=== PATIENT | female | born 1965 | race Caucasian/White ===

== ENCOUNTER 2018-02-22 07:13 | Day surgery (SDC) | payer OTHER ==
[~2018-02-22 07:13] MED LIST: Buffered Lidocaine 0.9% SYRIN* 5 ML/SYR SYRINGE INTRADERM ONE; Famotidine TAB* 20 MG PO ONE
[2018-02-22] MEDS ORDERED: Famotidine TAB* 20 MG ONE (07:18)
[2018-02-22] MEDS ORDERED: ceFAZolin 2 GM PREMIX (*) 2 GM/50 ML BAG IVPB ONE (07:18)
[2018-02-22] MEDS ORDERED: fentaNYL* 50 MCG/ML 2 ML VIAL (100 MCG VIAL) ONE ×5 (07:53→11:02)
[2018-02-22] MEDS ORDERED: Ketorolac INJ* 30 MG/ML 1 ML VIAL ONE (07:53)
[2018-02-22] MEDS ORDERED: Dexamethasone IV* 4 MG/ML 1 ML (4 MG) ONE (07:53)
[2018-02-22] MEDS ORDERED: Propofol* 10 MG/ML 20 ML BTL IV PUSH ONE (07:53)
[2018-02-22] MEDS ORDERED: Lidocaine 2% PF * 5 ML VIAL ONE (07:53)
[2018-02-22] MEDS ORDERED: Midazolam* 1 MG/ML 5 ML VIAL (5 MG) ONE (07:53)
[2018-02-22] MEDS ORDERED: methylPREDNISolone ACETATE 80* 80 MG/ML 1 ML VIAL ONE ×2 (08:39→09:51)
[2018-02-22] MEDS ORDERED: Bupivacaine 0.5% PF 10 ML VIAL INJ ONE (08:40)
[2018-02-22] MEDS ORDERED: Naloxone* 0.4 MG/ML 1 ML VIAL IV PRN (09:36)
[2018-02-22] MEDS ORDERED: Ondansetron ODT TAB* 4 MG PO PRN (09:36)
[2018-02-22] MEDS: fentaNYL* 50 MCG/ML 2 ML VIAL (100 MCG VIAL) IV PRN ×5 (10:22→11:16)
[2018-02-22] MEDS ORDERED: oxyCODONE/Acetamin 5/325 MG* TAB ONE ×2 (10:38→11:02)
[2018-02-22 11:55] VITALS: BP 162/95
--- NOTE | 2018-02-24 22:44 | OP ---
DATE OF OPERATION: 02/22/18 - [facility] DATE OF : 65 SURGEON: Esau Wade MD EDUCATIONAL ADMINISTRATION TEACHER: ERIC Miranda. A physician scheduling assistant was required for the length of the procedure for positioning, assistance with instrumentation, manipulation of knee, and closure. ANESTHESIOLOGIST: Kevin Strong MD ANESTHESIA: General anesthesia, local anesthesia with Marcaine, 0.5% without epinephrine. PRE-OP DIAGNOSIS: Left knee medial meniscus tear. POST-OP DIAGNOSES: 1. Left knee medial meniscus tear. 2. Left knee significant synovitis. 3. Left knee articular cartilage grade 2 to 3 wear, medial femoral condyle. OPERATIVE PROCEDURE: 1. Left knee arthroscopic partial medial meniscectomy. 2. Left knee arthroscopic synovectomy, anterior. 3. Left knee joint cortisone injection, 120 mg Depo-Medrol. ANTIBIOTICS: 2 g Ancef IV. IV FLUIDS: 1200 cc crystalloid. SPECIMEN: None. IMPLANTS: None. COMPLICATIONS: None. ESTIMATED BLOOD LOSS: Minimal. CORTISONE USED: 120 mg Depo-Medrol in 3 cc. GVKG-OF-FEOE TIME: 36 minutes. TOURNIQUET TIME: 34 minutes. 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 The patient's pain knee and swelling started acutely. The patient responded insufficiently to nonoperative management and opted for surgery. The patient's MRI demonstrated a medial meniscus tear. Discussed risks and potential complications of surgery with the patient including bleeding, infection, nerve or blood vessel injury, knee pain, stiffness, osteoarthritis. DESCRIPTION OF PROCEDURE: In preoperative holding, the patient signed a written consent. Operative extremity marked in preoperative holding. The patient was taken back to the operating room and placed supine on the operating room table. General anesthesia was induced. Tourniquet was placed about the left proximal thigh. Left distal thigh was placed in a circumferential thigh casiano. Table was elevated further, table was dropped. The left lower extremity was prepped with ChloraPrep and then draped. Time-out was performed. Esmarch was applied and tourniquet was elevated to 300 mmHg. Left knee anterolateral knee arthroscopy portal was established. I could view in the patellofemoral compartment. However, there was a wall of synovitis anteriorly, so could not easily drop down into the medial or lateral compartment. Therefore, at this point, I established my anteromedial portal, and used it to enter an arthroscopic shaver to remove synovitic tissue about the anterior knee. We started in the extended position and moved to a flexed position. This allowed removal of the synovitis and full visualization of all 3 compartments. I described this as a veil of synovial tissue along the entire anterior aspect of the knee, including prolapsing on both condyles, which I see occasionally. It should be noted that the patient had some bleeding from the skin incision sites likely veins, both from the anterolateral and anteromedial portal sites. I dropped the tourniquet, reapplied the Esmarch more tightly and reinflated the tourniquet. This provided some benefit. Inspected the medial compartment. There was some cobblestoning of the central aspect of the medial femoral condyle, grade 2 and 3 changes. I was worried that the most central side of that cartilage might be at risk, but I smoothed down any frayed cartilage and there was no unstable articular cartilage present. Examining the medial meniscus, there was clearly a tear, complex in shape, with a short parrot-beak tear to it. Using an anteromedial portal, I debrided that medial meniscus back to a stable rim using biters and an arthroscopic shaver. I worked through the anteromedial and then through an anterolateral portal. I confirmed no additional flaps of meniscus were present and there was a stable rim of tissue. Near the body and the posterior horn junction of the medial meniscus, there was very little meniscal rim left once the tear had been removed. Cruciate ligaments were intact. No unstable articular cartilage or meniscus tear in the lateral compartment. I removed fluid and instruments from knee. Closed skin with [id number] incision stitches using nylon 4-0 suture. I then injected 3 cc of 40 mg/mL solution of Depo-Medrol for a total of 120 mg. I then injected some local anesthetic, some 0.5% Marcaine without epinephrine into the subcutaneous tissue surrounding the skin incisions. Xeroform, then 4x4 's, then ABD, then sterile Webril, then unsterile Webril, then Zelalem bandage from the foot to proximal thigh. Tourniquet was dropped. Icing unit was placed on the knee. DISPOSITION: The patient was discharged home when medically stable. She will receive Percocet as needed for pain control. Keflex for infection prophylaxis, aspirin for DVT prophylaxis. The patient will start physical therapy immediately and will see me 10 to 14 days postoperative. [id number]/[facility] #: [id number] TORRES
== END 2018-02-22 12:39 | disposition home or self-care (01) ==
LOC: OR 07:13
PROVIDERS: ATTEND Orthopaedic Surgery
DX: S83.242D Other tear of medial meniscus, current injury, left knee, subsequent encounter (principal)
CPT/HCPCS: A9270-GY; J0690; J1040; J1100; J1885; J2250; J2704; J3010

== ENCOUNTER 2018-06-24 18:22 | Emergency (ER) | payer OTHER ==
--- OUTSIDE RECORDS SUMMARY | 2018-06-24 18:29 | XMS REPORT ---
:1965 External Reference #:[id number] Author Organization [facility] Address [address] [place] [address] [place] [address] Phone [phone] Care Team Providers Name Role Phone Jonathon Santiago MD Primary Care Physician Unavailable Payers Type Date Identification Numbers Payment Provider Subscriber Commercial Expires: Policy Number: BS Of [facility] Kingsley Groves 2007 [id number] Group Number: [id number] [address] [address] PayID: [id number] [place] bartlett [id number] Medigap Part B Expires: 2008 Policy Number: Medicaid Kingsley Groves [id number] PayID: [id number] [address] [place] [address] Commercial Effective: Policy Number: [employer] Kingsley Christiansoner 2008 [id number] Medicaid PayID: [id number] [address] [address] [place] [address] Problems Date Description Provider Status Onset: 08/28/2007 Displacement of lumbar Jonathon Santiago, 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 Active Onset: 02/13/2017 Edema Jama Lofton NP Active Onset: 02/13/2017 Dyspnea on exertion Jama Lofton NP Active Onset: 02/20/2018 Mild intermittent asthma Gideon ARTURO Schwarz Active Family History Date Family Member(s) Problem(s) Comments Father Hypertension Father Diverticulitis recurrent Father Bladder Cancer Mother Asthma Mother Migraine First Son Asthma First Daughter Asthma First Daughter Migraine Siblings 1 First Sister Diabetes, Non Insulin Dependent Paternal Grandfather due to CAD () Maternal Grandfather due to CAD () Maternal Grandmother due to Cancer, Colon () Social History Type Date Description Comments Marital Status Occupation Nurse Cigarette Use Never Smoked Cigarettes ETOH Use 06/25/2017 Rarely consumes alcohol Recreational Drug Use Denies Drug Use Smoking Patient has never smoked General Hx Text 2 kids Allergies, Adverse Reactions, Alerts Date Description Reaction Status Severity Comments 12/25/2007 NKDA active Medications Medication Date Status Form Strength Qnty SIG Indications Ordering Provider Furosemide 05/28/ Active Tablets 20mg 30tabs 1 by mouth R60.0 Gideon 2017 daily as ARTURO Schwarz needed for edema. Compression 05/03/ Active Misc 2units thigh high Esau Stockings 2018 compression F stockings MD Mauro Meloxicam 05/03/ Active Tablets 15mg 90tabs take 1 tab by Esau 2017 mouth with F food once a sona Wade MD Ventolin HFA 02/20/ Active Aerosol 108(90Base 1month 1-2 puffs J45.20 Gideon 2017 ) mcg/Act every 4-6 ARTURO Schwarz hours as needed for SOB Pristiq 10/20/ Active Tablets 100mg 30tabs 1 by mouth F32.9 Gideon 2010 ER 24HR every day ARTURO Schwarz Abilify 10/20/ Active Tablets 5mg 30tabs 1 by mouth F32.9 Gideon 2010 every night ARTURO Schwarz Inderal LA 08/14/ Active Caps ER 80mg 30caps take 1 I45.81 Gideon 2006 24HR capsule by Karishma, [facility] mouth every evening I10 Methadone HCL Active Tablets 10mg 90tabs 1/2 to 1 T40.3x5A Unknown tab q4hprn Cyclobenzaprine Active Tablets 5mg take one Unknown HCL tablet by mouth every 8 hours prn. may take a second tablet if first not effetive. Methylprednisolon 04/16/2018 Hx TBPK 4mg 21units medrol M17.12 Esau e - dosepak F 05/28/2018 take as kimberly Wade MD Cephalexin 02/22/2018 Hx Tablets 500mg 9tabs take 1 by Esau - mouth every F 03/06/2018 8 hours x 3 Mauro, days Aspirin 02/22/2018 Hx Tablets 325mg 28tabs take 1 Esau - twice a day F 05/28/2018 x 14 days MD Mauro Oxycodone-Acetami 02/22/2018 Hx Tablets 5-325 30tabs 1-2 tabs by Esau nophen - mg mouth every F 04/15/2018 4-6 hours Mauro, as needed for pain Hydrochlorothiazi 02/13/2017 Hx Tablets 25mg 30tabs take 1 R60.0 Gideon de - tablet by ARTURO Schwarz 05/28/2018 mouth every day Naproxen 10/12/2016 Hx Tablets 500mg 90tabs 1 po bid M25.561 Esau - prn pain F 05/28/2018 MD Mauro Celecoxib 10/12/2016 Hx Capsules 100mg 60caps 100mg by M25.561 Esau - mouth twice F 02/13/2017 a day as Mauro, needed Tamiflu 04/27/2016 Hx Capsules 75mg 10caps twice a day J09.x9 Alirio - Pachikara 02/13/2017 , Hosea Citrucel 06/27/2013 Hx Powder 1 po qd Bettye Clear-Mix - Dillon, 01/28/2016 N.P. Omeprazole 03/13/2012 Hx Capsules 20mg 30caps 1 po qd 535.40 Jonathon Santiago, 08/07/2013 Hosea,FACP Sumatriptan 10/20/2010 Hx Tablets 100mg 9tabs q2h prn 535.40 Jonathon Santiago, 01/28/2016 Hosea,FACP Ventolin HFA 10/20/2010 Hx Aerosol 108(9 1month 2 puffs po 466.0 Teresa Conteh 0Base qid prn Chucho Santiago, 01/28/2016 ) Hosea,FACP mcg/a c Avelox 11/09/2009 Hx Tablets 400mg 10tabs 1 qd x 10 466.0 Jonathon Santiago, 12/21/2009 Hosea,FACP Albuterol Inhaler 11/09/2009 Hx 1units 2 puffs up 466.0 Jonathon Conteh to qid prn Chucho Santiago, 10/20/2010 Hosea,FACP Flovent HFA 10/28/2009 Hx Aerosol 110mc 1mon 2 puff bid 786.07 Teresa garcia/Act Chucho Santiago, 10/20/2010 Hosea,FACP Prilosec OTC 04/30/2008 Hx Tablets 20mg 30tabs Take One 535.[address] Tablet By Chucho Santiago, 03/13/2012 Mouth Every Hosea,FACP Day Omeprazole 03/20/2008 Hx Capsules 20mg 90caps 1 PO qd 535.40 Jonathon Snatiago, 04/30/2008 [facility] V[facility] 12/27/2007 Hx Tablets 1gm 21tabs tid For 7 Jonathon Santiago, 05/28/2009 Hosea,FACP Lyrica 12/27/2007 Hx Capsules 75mg 40caps 1 tid prn Jonathon Santiago, 03/20/2008 Hosea,FACP Keflex 12/25/2007 Hx Capsules 500mg 40caps 1 qiid x 10 682.2 Jonathon Santiago, 03/20/2008 Hosea,FACP Methadone HCL 08/14/2007 Hx Tablets 10mg 300tabs qid prn 782.3 Teresa Santiago, 08/14/2007 Hosea,FACP Dyazide 08/14/2007 Hx Capsules 37.5- qam Jonathon Santiago, 08/28/2007 Hosea,FACP Zomig 08/14/2007 Hx Tablets 5mg prn Jonathon Santiago, 05/28/2009 Zachary.,FACP Lupron Depot 08/14/2007 Hx Kit Jonathon Santiago, 10/28/2009 Hosea,FACP Norethindrone 08/14/2007 Hx Tablets Jonathon Santiago, 12/25/2007 M.Thee.,FACP Omeprazole 08/14/2007 Hx Capsules 20mg qd prn Jonathon Santiago, 12/25/2007 Hosea,FACP Remeron 08/14/2007 Hx Tablets 30mg 30tabs 1 Tabs PO Jonathon - Q hs Chucho Santiago, 12/25/2007 [facility] MS Contin 08/14/2007 Hx Tablets 30mg 90tabs po q8h 782.3 Jonathon - ER 12HR Chucho Santiago, 12/25/2007 [facility] Lasix 08/14/2007 Hx Tablets 40mg 30tabs qam prn for 782.3 Jonathon - rajni Santiago, 05/28/2009 [facility] Nome 08/14/2007 Hx Tablets 10-32 12tabs 1 qid prn Jonathon - 5mg Chucho Santiago, 03/20/2008 MKanu,FACP Lexapro 08/14/2007 Hx Tabs 20mg 30tabs Take One Jonathon - Tablet By Chucho Santiago, 10/20/2010 Mouth Every M.D.,FACP Day Soma 08/14/2007 Hx Tabs 350mg 100tabs take one Jonathon - tablet by Chucho Santiago, 01/28/2016 mouth four M.D.,FACP times A day as needed Aygestin Hx Tablets 5mg Unknown - 05/28/2009 Lyrica Hx 50mg 1 tid 535.40 Unknown - 05/08/2012 Maxalt Hx 535.40 Unknown - 10/20/2010 Tetracycline HCL Hx Caps 250mg 60caps Take Two Jonathon - Capsules By Chucho Santiago, 10/19/2011 Mouth AT M.D.,FACP Bedtime Klonopin Hx Tablets 0.5mg 20tabs 1 po bid Unknown - prn 07/05/2011 Medications Administered in Office Medication Date Status Form Strength Qnty SIG Indications Ordering Provider Depomedrol Administered Injection Esau F 40MG 018 MD Mauro PPD Administered Injection Bettye 017 - Dillon, N.P. 017 Depomedrol Administered Injection Esau F 40MG 016 MD Mauro Immunizations CPT Code Status Date Vaccine Lot # [id number] Given 06/25/2017 Hepatitis B Vaccine Adult Dosage [id number] 62210 Given 06/25/2017 Influenza Virus Vaccine, Quadrivalent, Split, [id number] Preservative Free 03181 Given 12/15/2014 Hepatitis B Vaccine Adult Dosage [id number] 52996 Given 11/17/2014 Hepatitis B Vaccine Adult Dosage [id number] 83513 Given 11/17/2014 Tdap - Tetanus/Diptheria/Acellular Pertussis [id number] 81387 Given 08/07/2013 Flu Vaccine Split Virus Preservative Free For [id number] Indiv 3Yr Older 19588 Given 07/05/2011 Influenza Virus 3Yrs & Over [id number] 94179 Given 10/20/2010 Pneumonia Vaccine [id number] 90978 Given 10/20/2010 Influenza Virus 3Yrs & Over [id number] 45957 Given 11/03/2009 Influenza Virus 3Yrs & Over 81482 Given 10/28/2009 Influenza Virus Vaccine, Pandemic Formulation 97957 Given 10/28/2009 Administration Swine Flu Shot [id number] Refused 06/27/2017 Hepatitis B Vaccine Adult Dosage 51259 Refused 06/27/2017 Tdap - Tetanus/Diptheria/Acellular Pertussis [id number] Refused 06/27/2017 Influenza Virus 3Yrs & Over Vital Signs Date Vital Result Comment 05/28/2018 Height 60 inches 5'0" Weight 209.00 lb Heart Rate 69 /min BP Systolic Sitting 126 mmHg BP Diastolic Sitting 80 mmHg Body Temperature 97.6 F O2 % BldC Oximetry 94 % BMI (Body Mass Index) 40.8 kg/m2 05/03/2018 Height 60 inches 5'0" Heart Rate 76 /min BP Systolic 126 mmHg BP Diastolic 82 mmHg Respiratory Rate 18 /min Body Temperature 97.6 F Pain Level 7 04/16/2018 Height 60 inches 5'0" Weight 190.00 lb Heart Rate 80 /min BP Systolic 132 mmHg BP Diastolic 70 mmHg Respiratory Rate 12 /min Pain Level 7 BMI (Body Mass Index) 37.1 kg/m2 03/07/2018 Height 60 inches 5'0" Weight 207.00 lb BP Systolic 126 mmHg BP Diastolic 82 mmHg Respiratory Rate 16 /min Body Temperature 97.7 F Pain Level 4 BMI (Body Mass Index) 40.4 kg/m2 02/20/2018 Height 60 inches 5'0" Weight 207.00 lb Heart Rate 69 /min BP Systolic 139 mmHg BP Diastolic 74 mmHg BP Systolic Recheck 136 mmHg BP Diastolic Recheck 72 mmHg O2 % BldC Oximetry 97 % BMI (Body Mass Index) 40.4 kg/m2 02/11/2018 Height 60 inches 5'0" Heart Rate 75 /min BP Systolic 128 mmHg BP Diastolic 82 mmHg Respiratory Rate 16 /min Body Temperature 97.6 F Pain Level 7 12/06/2017 Height 60 inches 5'0" Weight 200.00 lb BP Systolic 134 mmHg BP Diastolic 83 mmHg Respiratory Rate 16 /min Pain Level 7 BMI (Body Mass Index) 39.1 kg/m2 11/28/2017 Weight 208.00 lb Heart Rate 55 /min BP Systolic 142 mmHg BP Diastolic 84 mmHg Body Temperature 97.4 F O2 % BldC Oximetry 92 % 11/20/2017 Height 60 inches 5'0" Weight 200.00 lb BP Systolic 138 mmHg BP Diastolic 86 mmHg Respiratory Rate 15 /min Pain Level 6 BMI (Body Mass Index) 39.1 kg/m2 06/25/2017 Height 59.75 inches 4'11.75" Weight 209.00 lb Heart Rate 70 /min BP Systolic Sitting 136 mmHg BP Diastolic Sitting 80 mmHg O2 % BldC Oximetry 99 % BMI (Body Mass Index) 41.2 kg/m2 02/13/2017 Weight 210.25 lb w/o shoes Heart Rate 80 /min BP Systolic Sitting 164 mmHg BP Diastolic Sitting 98 mmHg Body Temperature 97.9 F O2 % BldC Oximetry 88 % 10/12/2016 Height 60 inches 5'0" Weight 195.00 lb Heart Rate 86 /min Pain Level 7 BMI (Body Mass Index) 38.1 kg/m2 04/27/2016 Height 59.5 inches 4'11.50" Weight 1974.00 lb Heart Rate 80 /min BP Systolic Sitting 142 mmHg BP Diastolic Sitting 108 mmHg Body Temperature 98.6 F O2 % BldC Oximetry 95 % BMI (Body Mass Index) 392.0 kg/m2 01/28/2016 Height 59.5 inches 4'11.50" Weight 200.00 lb Heart Rate 62 /min BP Systolic Sitting 120 mmHg BP Diastolic Sitting 80 mmHg Body Temperature 97.9 F O2 % BldC Oximetry 97 % BMI (Body Mass Index) 39.7 kg/m2 09/18/2014 Weight 200.00 lb Heart Rate 67 /min BP Systolic Sitting 136 mmHg BP Diastolic Sitting 77 mmHg Body Temperature 97.8 F O2 % BldC Oximetry 98 % 08/07/2013 Height 59.75 inches 4'11.75" Weight 193.00 lb Heart Rate 68 /min BP Systolic Sitting 112 mmHg BP Diastolic Sitting 88 mmHg Body Temperature 97.6 F BMI (Body Mass Index) 38.0 kg/m2 07/31/2013 Weight 190.00 lb Heart Rate 74 /min BP Systolic Sitting 122 mmHg BP Diastolic Sitting 80 mmHg Body Temperature 99.0 F 06/27/2013 Height 59.75 inches 4'11.75" Weight 193.75 lb Heart Rate 74 /min BP Systolic Sitting 130 mmHg BP Diastolic Sitting 86 mmHg BMI (Body Mass Index) 38.2 kg/m2 05/08/2012 Height 59.75 inches 4'11.75" Weight 204.50 lb Heart Rate 64 /min BP Systolic Sitting 102 mmHg BP Diastolic Sitting 78 mmHg BMI (Body Mass Index) 40.3 kg/m2 10/19/2011 Height 60 inches 5'0" Weight 210.00 lb Heart Rate 60 /min BP Systolic Sitting 100 mmHg BP Diastolic Sitting 80 mmHg BMI (Body Mass Index) 41.0 kg/m2 07/05/2011 Height 60 inches 5'0" Weight 215.00 lb Heart Rate 66 /min BP Systolic Sitting 124 mmHg BP Diastolic Sitting 68 mmHg BMI (Body Mass Index) 42.0 kg/m2 10/20/2010 Height 60 inches 5'0" Weight 225.00 lb Heart Rate 78 /min BP Systolic Sitting 120 mmHg BP Diastolic Sitting 80 mmHg BMI (Body Mass Index) 43.9 kg/m2 11/09/2009 Heart Rate 74 /min BP Systolic Sitting 120 mmHg BP Diastolic Sitting 70 mmHg Respiratory Rate 16 /min Body Temperature 98.4 F 10/28/2009 Heart Rate 64 /min BP Systolic Sitting 120 mmHg BP Diastolic Sitting 76 mmHg 05/28/2009 Height 60 inches 5'0" Weight 215.00 lb Heart Rate 76 /min BP Systolic Sitting 140 mmHg BP Diastolic Sitting 76 mmHg BMI (Body Mass Index) 42.0 kg/m2 03/20/2008 Height 60 inches 5'0" Weight 201.00 lb Heart Rate 80 /min BP Systolic Sitting 130 mmHg BP Diastolic Sitting 86 mmHg BMI (Body Mass Index) 39.3 kg/m2 12/25/2007 Height 60 inches 5'0" Weight 184.00 lb Heart Rate 76 /min BP Systolic Sitting 142 mmHg BP Diastolic Sitting 82 mmHg Body Temperature 99.5 F BMI (Body Mass Index) 35.9 kg/m2 08/28/2007 Height 60 inches 5'0" Weight 204.00 lb Heart Rate 70 /min BP Systolic Sitting 118 mmHg BP Diastolic Sitting 78 mmHg BMI (Body Mass Index) 39.8 kg/m2 08/14/2007 Height 60 inches 5'0" Heart Rate 88 /min BP Systolic Sitting 118 mmHg BP Diastolic Sitting 78 mmHg Results Test Date Test Result H/L Range Note CBC Auto Diff 02/20/2018 White Blood Count 6.4 10^3/uL 3.5-10.8 Red Blood Count 4.27 10^6/uL 4.0-5.4 Hemoglobin 13.8 g/dL 12.0-16.0 Hematocrit 41 % 35-47 Mean Corpuscular Volume 96 fL 80-97 Mean Corpuscular Hemoglobin 32 pg High 27-31 Mean Corpuscular HGB Conc 34 g/dL 31-36 Red Cell Distribution Width 14 % 10.5-15 Platelet Count 269 10^3/uL 150-450 Mean Platelet Volume 7.3 um3 Low 7.4-10.4 Abs Neutrophils 4.2 10^3/uL 1.5-7.7 Abs Lymphocytes 1.5 10^3/uL 1.0-4.8 Abs Monocytes 0.4 10^3/uL 0-0.8 Abs Eosinophils 0.2 10^3/uL 0-0.6 Abs Basophils 0.1 10^3/uL 0-0.2 Abs Nucleated RBC 0 10^3/uL Granulocyte % 65.7 % 38-83 Lymphocyte % 24.2 % Low 25-47 Monocyte % 6.8 % 0-7 Eosinophil % 2.4 % 0-6 Basophil % 0.9 % 0-2 Nucleated Red Blood Cells % 0.1 Basic Metabolic Panel 02/20/2018 Sodium 143 mmol/L 139-145 Potassium 4.1 mmol/L 3.5-5.0 Chloride 108 mmol/L 101-111 Co2 Carbon Dioxide 29 mmol/L 22-32 Anion Gap 6 mmol/L 2-11 Glucose 87 mg/dL 70-100 Blood Urea Nitrogen 14 mg/dL 6-24 Creatinine 0.77 mg/dL 0.51-0.95 BUN/Creatinine Ratio 18.2 8-20 Calcium 9.0 mg/dL 8.6-10.3 Egfr Non- 78.7 >60 Egfr 101.2 >60 1 Urinalysis Profile 02/20/2018 Urine Color Yellow Urine Appearance Cloudy Urine Specific [place] 1.024 1.010-1.030 Urine pH 6.0 5-9 Urine Urobilinogen Negative Negative Urine Ketones Negative Negative Urine Protein Negative Negative Urine Leukocytes 1+ Negative Urine Blood Negative Negative Urine Nitrite Negative Negative Urine Bilirubin Negative Negative Urine Glucose Negative Negative Urine White Blood Cell Trace(0-5/hpf) Absent Urine Red Blood Cell Trace(0-2/hpf) Absent Urine Bacteria Absent Absent Urine Squamous Epithelial Cell Present Absent Laboratory test finding 02/20/2018 TSH (Thyroid Stim 0.80 mcIU/mL 0.34- 5.60 Horm) Urine Culture And 02/20/2018 Urine Culture SEE RESULT BELOW 2 Sensitivities Rubeola Measles Igg AB 06/27/2017 Rubeola (Measles) Positive 3 IgG Antibody Rubeola IgG Antibody Index >8.0 4 Laboratory test finding 06/27/2017 Rubella Screen Immune IU/mL Immune Mumps Igg 06/27/2017 Mumps Virus IgG Antibody Positive 5 Mumps IgG Antibody Index 3.2 6 CBC Auto Diff 02/13/2017 White Blood Count 6.5 10^3/uL 3.5-10.8 Red Blood Count 4.40 10^6/uL 4.0-5.4 Hemoglobin 13.9 g/dL 12.0-16.0 Hematocrit 42 % 35-47 Mean Corpuscular Volume 96 fL 80-97 Mean Corpuscular Hemoglobin 32 pg High 27-31 Mean Corpuscular HGB Conc 33 g/dL 31-36 Red Cell Distribution Width 13 % 10.5-15 Platelet Count 246 10^3/uL 150-450 Mean Platelet Volume 8 um3 7.4-10.4 Abs Neutrophils 3.9 10^3/uL 1.5-7.7 Abs Lymphocytes 1.9 10^3/uL 1.0-4.8 Abs Monocytes 0.4 10^3/uL 0-0.8 Abs Eosinophils 0.1 10^3/uL 0-0.6 Abs Basophils 0.1 10^3/uL 0-0.2 Abs Nucleated RBC 0.01 10^3/uL Granulocyte % 61.0 % 38-83 Lymphocyte % 29.4 % 25-47 Monocyte % 6.5 % 1-9 Eosinophil % 2.3 % 0-6 Basophil % 0.8 % 0-2 Nucleated Red Blood Cells % 0.1 Comp Metabolic Panel 02/13/2017 Sodium 139 mmol/L 133-145 Potassium 3.9 mmol/L 3.5-5.0 Chloride 105 mmol/L 101-111 Co2 Carbon Dioxide 29 mmol/L 22-32 Anion Gap 5 mmol/L 2-11 Glucose 116 mg/dL High 70-100 Blood Urea Nitrogen 9 mg/dL 6-24 Creatinine 0.68 mg/dL 0.51-0.95 BUN/Creatinine Ratio 13.2 8-20 Calcium 9.0 mg/dL 8.6-10.3 Total Protein 6.4 g/dL 6.4-8.9 Albumin 4.1 g/dL 3.2-5.2 Globulin 2.3 g/dL 2-4 Albumin/Globulin Ratio 1.8 1-3 Total Bilirubin 0.40 mg/dL 0.2-1.0 Alkaline Phosphatase 63 U/L 34-104 Alt 32 U/L 7-52 Ast 27 U/L 13-39 Egfr Non- 91.2 >60 Egfr 117.3 >60 7 Laboratory test finding 02/13/2017 TSH (Thyroid Stim Horm) 0.67 mcIU/mL 0.34-5.60 Free T4 (Free Thyroxine) 0.96 ng/dL 0.61-1.12 Rubeola Measles Igg AB 04/11/2016 Rubeola (Measles) IgG Antibody Positive 8 Rubeola IgG Antibody Index >8.0 9 Mumps Igg 04/11/2016 Mumps Virus IgG Antibody Positive 10 Mumps IgG Antibody Index 3.3 11 Laboratory test finding 04/11/2016 Rubella Screen Immune IU/mL Immune Basic Metabolic Panel 01/28/2016 Sodium 139 mmol/L 133-145 Potassium 4.0 mmol/L 3.5-5.0 Chloride 105 mmol/L 101-111 Co2 Carbon Dioxide 29 mmol/L 22-32 Anion Gap 5 mmol/L 2-11 Glucose 93 mg/dL 70-100 Blood Urea Nitrogen 11 mg/dL 6-24 Creatinine 0.66 mg/dL 0.51-0.95 BUN/Creatinine Ratio 16.7 8-20 Calcium 8.9 mg/dL 8.6-10.3 Egfr Non- 94.8 >60 Egfr 121.9 >60 12 Lipid Profile (Trig/Chol/HDL) 01/28/2016 Triglycerides 55 mg/dL 13 Cholesterol 144 mg/dL 14 HDL Cholesterol 61.0 mg/dL 15 LDL Cholesterol 72 mg/dL 16 Herpes Simplex Type 1&2 07/31/2013 Herpes Simplex Virus I Positive Negative Igg IgG AB Herpes Simplex Virus II IgG AB Negative Negative 17 Herpes Simplex Type 1&2 07/31/2013 Herpes Simplex Type 1 2 Negative Negative 18 Igm IgM Laboratory test finding 07/31/2013 Lyme Disease Serology Negative Negative 19 West Nile Igg And Igm 07/31/2013 West Nile Virus IgG Negative Negative West Nile Virus IgM Negative Negative 20 Syphilis Screen 07/31/2013 Syphilis IgG Nonreactive Nonreactive 21 RPR TNP Nonreactive RPR Titer TNP Pediatric/Maternal NO CBC With Manual Diff 07/31/2013 White Blood Count 7.6 10^3/uL 4.8-10.8 Red Blood Count 4.19 10^6/uL 4.0-5.4 Hemoglobin 13.6 g/dL 12.0-16.0 Hematocrit 39 % 35-47 Mean Corpuscular Volume 94 fL 80-97 Mean Corpuscular Hemoglobin 33 pg High 27-31 Mean Corpuscular HGB Conc 35 g/dL 31-36 Red Cell Distribution Width 13 % 10.5-15 Platelet Count 259 10^3/uL 150-450 Mean Platelet Volume 7 um3 Low 7.4-10.4 Abs Neutrophils 4.2 10^3/uL 1.5-7.7 Abs Lymphocytes 2.3 10^3/uL 1.0-4.8 Abs Monocytes 0.5 10^3/uL 0-0.8 Abs Eosinophils 0.4 10^3/uL 0-0.6 Abs Basophils 0.1 10^3/uL 0-0.2 Abs Nucleated RBC 0.01 10^3/uL Neutrophil % 59 % 38-83 Lymphocytes % 24 % Low 25-47 Monocytes % 6 % 0-13 Eosinophils % 7 % High 0-6 Basophil % 2 % 0-2 Reactive Lymph % 2 % 0-6 RBC Morphology Normal Normal Comp Metabolic Panel 07/31/2013 Sodium 139 mmol/L 133-145 Potassium 4.3 mmol/L 3.5-5.0 Chloride 105 mmol/L 101-111 Co2 Carbon Dioxide 28.0 mmol/L 22-32 Anion Gap 6.0 mmol/L 2-11 Glucose 101 mg/dL High 70-100 Blood Urea Nitrogen 10 mg/dL 6-24 Creatinine 0.80 mg/dL 0.50-1.40 BUN/Creatinine Ratio 12.5 8-20 Calcium 9.0 mg/dL 8.1-9.9 Total Protein 5.9 g/dL Low 6.2-8.1 Albumin 3.6 g/dL 3.6-5.4 Globulin 2.3 g/dL 2-4 Albumin/Globulin Ratio 1.6 1-3 Total Bilirubin 0.7 mg/dL 0.4-1.5 Alkaline Phosphatase 51 U/L 30-110 Alt 48 U/L 14-54 Ast 27 U/L 12-42 Egfr Non- 76.9 >60 Egfr 98.9 >60 22 Laboratory test finding 07/21/2013 CSF Glucose 49 mg/dL Low 50-75 23 CSF Total Protein 60.0 mg/dL High 15-45 24 CSF Culture & Sensitivity 07/21/2013 CSF Culture Gram Stain (SEE NOTE) 25 Body Fluid Cell Count 07/21/2013 Body Fluid Source Cerebral Spinal Body Fluid Appearance Clear Body Fluid Color Colorless CSF Tube # 1 Body Fluid Volume 1 mL Body Fluid WBC 31 Body Fluid RBC 79 Body Fluid Polys 32 Body Fluid Lymph 52 Body Fluid Shack[place]ord 16 Body Fluid Eosinophil 1 Body Fluid Total Cells Counted 100 Fluid Reviewed By (SEE NOTE) 26 Laboratory test finding 04/28/2012 (HCG) Serum NEGATIVE Negative 27 Comp Metabolic Panel 04/28/2012 Sodium 140 mmol/L 135-145 Potassium 4.0 mmol/L 3.5-5.0 Chloride 105 mmol/L 101-111 Co2 (Carbon Dioxide) 32.0 mmol/L 22-32 Anion Gap 3.0 mmol/L 2-11 28 Glucose 83 mg/dL 70-100 BUN 7 mg/dL 6-24 Creatinine 0.6 mg/dL 0.50-1.40 One Over Creatinine 1.66 BUN/Creatinine Ratio 11.7 8-20 Calcium 9.0 mg/dL 8.1-9.9 Total Protein 6.7 GM/DL 6.2-8.1 Albumin 3.7 GM/DL 3.6-5.4 Globulin 3.0 GM/DL 2-4 Albumin/Globulin Ratio 1.2 1-3 Bilirubin Total 0.5 mg/dL 0.4-1.5 29 Alkaline Phosphatase 71 U/L 30-110 Alt (SGPT) 39 U/L 14-54 Ast (Sgot) 23 U/L 12-42 eGFR Non- 107.6 > 60 eGFR 138.4 > 60 30 Laboratory test finding 04/28/2012 Amylase 55 U/L 20-120 31 Lipase 21 U/L Low 22-51 CBC Auto Diff 04/28/2012 White Blood Count 9.6 CUMM 4.8-10.8 Red Cell Count 4.16 CUMM Low 4.2-5.4 Hemoglobin 13.8 g/dL 12.0-16.0 Hematocrit 39 % 35-47 Mean Corpuscular Volume 94 um3 79-97 Mean Corpuscular Hemoglob 33 pg High 27-31 Mean Corpuscular HGB Cone 35 g/dL 32-36 Redcell Distribution WDTH 13 % 10.5-15 Platelet Count 281 CUMM 150-450 Mean Platelet Volume 7.7 um3 7.4-10.4 Gran % 65.0 % 38-83 Lymph % 27.1 % 20-45 Mononuclear % 5.9 % 1-9 Eosinophil % 1.3 % 0-6 Basophil % 0.7 % 0-2 Abs Lymphs 2.6 1.0-4.8 Abs Mononuclear 0.6 0-0.8 Absolute Neutrophil Count 6.2 1.5-7.7 Abs Eosinophils 0.1 0-0.6 Abs Basophils 0.1 0-0.2 Comments 1 32 Urinalysis 04/28/2012 Ua Color YELLOW Yellow Appearance-Urine CLEAR Clear Specific [place]-Ur 1.047 High 1.010-1.030 33 Esterase-Urine NEGATIVE Negative Nitrite NEGATIVE Negative [id number] NEGATIVE Negative Protein-Urine NEGATIVE Negative PH-Urine 7.5 5-9 Blood-Urine NEGATIVE Negative Ketones-Urine NEGATIVE Negative Bilirubin-Ur NEGATIVE Negative Glucose-Urine NEGATIVE Negative Hemogram 11/21/2010 White Blood Count 8.3 CUMM 4.8-10.8 Red Cell Count 4.10 CUMM Low 4.2-5.4 Hemoglobin 12.9 g/dL 12.0-16.0 Hematocrit 39 % 35-47 Mean Corpuscular Volume 95 um3 79-97 Mean Corpuscular Hemoglob 32 pg High 27-31 Mean Corpuscular HGB Cone 33 g/dL 32-36 Redcell Distribution WDTH 14 % 10.5-15 Platelet Count 327 CUMM 150-450 Mean Platelet Volume 7.4 um3 7.4-10.4 Laboratory test finding 11/21/2010 Glucose 94 mg/dL 70-100 CBC With Electronic Diff 11/21/2010 White Blood Count 8.3 CUMM 4.8-10.8 Red Cell Count 4.10 CUMM Low 4.2-5.4 Hemoglobin 12.9 g/dL 12.0-16.0 Hematocrit 39 % 35-47 Mean Corpuscular Volume 95 um3 79-97 Mean Corpuscular Hemoglob 32 pg High 27-31 Mean Corpuscular HGB Cone 33 g/dL 32-36 Redcell Distribution WDTH 14 % 10.5-15 Platelet Count 327 CUMM 150-450 Mean Platelet Volume 7.4 um3 7.4-10.4 Gran % 60.7 % 38-83 Lymph % 29.4 % 25-47 Mononuclear % 6.1 % 1-9 Eosinophil % 3.1 % 0-6 Basophil % 0.7 % 0-2 Abs Lymphs 2.4 1.0-4.8 Abs Mononuclear 0.5 0-0.8 Absolute Neutrophil Count 5.0 1.5-7.7 Abs Eosinophils 0.3 0-0.6 Abs Basophils 0.1 0-0.2 Lipid Profile (Trig/Chol/HDL) 11/21/2010 Triglyceride 67 mg/dL 40-200 Cholesterol 139 mg/dL Less Than 200 34 High Density Lipoprotein 46 mg/dL 40-60 35 Cholesterol/HDL Ratio 3.02 AVERAGE 1-4.44 Low Density Lipoprotein 80 mg/dL Less Than 100 36 Laboratory test finding 10/28/2009 TSH 2.36 MIU/ML 0.34-5.60 Thyroxine Free 1.02 NG/ML 0.61-1.24 37 CBC With Manual Diff 08/13/2009 White Blood Count 9.3 CUMM 4.8-10.8 Red Cell Count 3.82 CUMM Low 4.2-5.4 Hemoglobin 11.8 g/dL Low 12.0-16.0 Hematocrit 35 % 35-47 Mean Corpuscular Volume 93 um3 79-97 Mean Corpuscular Hemoglob 31 pg 27-31 Mean Corpuscular HGB Cone 33 g/dL 32-36 Redcell Distribution WDTH 15 % 10.5-15 Platelet Count 262 CUMM 150-450 Mean Platelet Volume 6.9 um3 Low 7.4-10.4 Polysegmented Neutrophil 83 % 38-83 Band Neutrophil 3 % 0-8 Lymphocyte 8 % Low 25-47 Monocyte 6 % 0-13 Absolute Neutrophil Count 7.9 Anisocytosis SLIGHT Ovalocytes FEW Urine Qual 08/12/2009 Specific [place] 1.015 1.010-1.030 Urine NEGATIVE Negative 38 Type And Screen 08/05/2009 Patient Blood Type A POSITIVE 39 Antibody Screen NEGATIVE 39 Specimen Discard Date 08/20/09 39, 40 CBC With Electronic Diff 08/05/2009 White Blood Count 8.0 CUMM 4.8-10.8 39 Red Cell Count 4.00 CUMM Low 4.2-5.4 39 Hemoglobin 12.4 g/dL 12.0-16.0 39 Hematocrit 37 % 35-47 39 Mean Corpuscular Volume 92 um3 79-97 39 Mean Corpuscular Hemoglob 31 pg 27-31 39 Mean Corpuscular HGB Cone 34 g/dL 32-36 39 Redcell Distribution WDTH 14 % 10.5-15 39 Platelet Count 314 CUMM 150-450 39 Mean Platelet Volume 7.7 um3 7.4-10.4 39 Gran % 61.2 % 38-83 39 Lymph % 32.5 % 25-47 39 Mononuclear % 4.2 % 1-9 39 Eosinophil % 1.6 % 0-6 39 Basophil % 0.5 % 0-2 39 Abs Lymphs 2.6 1.0-4.8 39 Abs Mononuclear 0.3 0-0.8 39 Absolute Neutrophil Count 4.9 1.5-7.7 39 Abs Eosinophils 0.1 0-0.6 39 Abs Basophils 0 0-0.2 39 Laboratory test finding 03/19/2008 Lipase 17 U/L Low 22-51 Amylase Stat 03/19/2008 Amylase 49 U/L 30-125 P33S 03/19/2008 Sodium 140 mmol/L 135-145 Potassium 4.0 mmol/L 3.5-5.0 Chloride 108 mmol/L 101-111 Co2 (Carbon Dioxide) 26.0 mmol/L 22-32 Anion Gap 6.0 mmol/L 2-11 41 Glucose 88 mg/dL 70-105 BUN 4 mg/dL Low 6-24 Creatinine 0.7 mg/dL 0.5-1.4 One Over Creatinine 1.42 BUN/Creatinine Ratio 5.7 Low 8-20 Calcium 8.7 mg/dL 8.1-9.9 42 Total Protein 6.1 GM/DL Low 6.2-8.1 Albumin 3.5 GM/DL Low 3.6-5.4 Globulin 2.6 GM/DL 2-4 Albumin/Globulin Ratio 1.3 1-3 Bilirubin Total 0.3 mg/dL Low 0.4-1.5 Alkaline Phosphatase 104 U/L 30-110 Alt (SGPT) 29 U/L 14-54 Ast (Sgot) 21 U/L 12-42 CBC With Electronic Diff Stat 03/19/2008 White Blood Count 7.6 CUMM 4.8- 10.8 Red Cell Count 4.08 CUMM Low 4.2-5.4 Hemoglobin 12.6 g/dL 12.0-16.0 Hematocrit 36 % 35-47 Mean Corpuscular Volume 89 um3 79-97 Mean Corpuscular Hemoglob 31 pg 27-31 Mean Corpuscular HGB Cone 35 g/dL 32-36 Redcell Distribution WDTH 15 % 10.5-15 Platelet Count 328 CUMM 150-450 Mean Platelet Volume 7.2 um3 Low 7.4-10.4 Gran % 69.4 % 38-83 Lymph % 22.6 % 20-45 Mononuclear % 5.1 % 1-9 Eosinophil % 1.1 % 0-6 Basophil % 1.8 % 0-2 Abs Lymphs 1.7 1.0-4.8 Abs Mononuclear 0.4 0-0.8 Absolute Neutrophil Count 5.3 1.5-7.7 Abs Eosinophils 0.1 0-0.6 Abs Basophils 0.1 0-0.2 Urinalysis W/Microscopic Stat 03/19/2008 Ua Color YELLOW Appearance-Urine CLEAR Specific [place]-Ur 1.012 1.010-1.030 Esterase-Urine TRACE Negative Nitrite NEGATIVE Negative Wioufkpnkylu-Cy-ETO NEGATIVE Negative Protein-Urine NEGATIVE Negative PH-Urine 8.0 5-9 Blood-Urine NEGATIVE Negative Ketones-Urine NEGATIVE Negative Bilirubin-Ur NEGATIVE Negative Glucose-Urine NEGATIVE Negative WBC-Urine 4-7 0-5 RBC-Urine 0-2 0-2 Mucus Urine SMALL Epith Cells-Ur FEW Bacteria-Urine FEW Amorphous Sed-U FEW Ua Stat 03/19/2008 Ua Color YELLOW Appearance-Urine CLEAR Specific [place]-Ur 1.012 1.010-1.030 Esterase-Urine TRACE Negative Nitrite NEGATIVE Negative Zcapjwhamaqy-Qv-ZMV NEGATIVE Negative Protein-Urine NEGATIVE Negative PH-Urine 8.0 5-9 Blood-Urine NEGATIVE Negative Ketones-Urine NEGATIVE Negative Bilirubin-Ur NEGATIVE Negative Glucose-Urine NEGATIVE Negative 1 Because ethnic data is not always readily available, this report includes an eGFR for both -Americans and non- Americans. The National Kidney Disease Education Program (NKDEP) does not endorse the use of the MDRD equation for patients that are not between the ages of 18 and 70, are , have extremes of body size, muscle mass, or nutritional status, or are non- or non-. According to the National Kidney Foundation, irrespective of diagnosis, the stage of the disease is based on the level of kidney function: Stage Description GFR(mL/min/1.73 m(2)) 1 Kidney damage with normal or decreased GFR 90 2 Kidney damage with mild decrease in GFR 60-89 3 Moderate decrease in GFR 30-59 4 Severe decrease in GFR 15-29 5 Kidney failure <15 (or dialysis) 2 SEE RESULT BELOW Name: KINGSLEY ROMERO : [address]: Gideon Schwarz NP Acct: [id number] Unit: [id number] AGE: 52 Location: [facility] Re02/20/18 SEX: F Status: REG REF SPEC: [id number] RONNA: 02/20/[address]: Gideon Schwarz NP REQ: [id number] RECD: 02/20/18 STATUS: COMP _ SOURCE: URINE SPDESC: ORDERED: Urine Culture Procedure Result Reported Site Urine Culture Final 02/21/18- 1605 ML No growth of clinically significant organisms * ML - Main Lab . END OF REPORT DEPARTMENT OF PATHOLOGY, [address] [place] [address] Misael Whitlock M.D. Director [facility] # [id number] 3 Results suggest response to immunization or prior exposure to the virus. REFERENCE VALUE Vaccinated: Positive (>=1.1 AI) Unvaccinated: Negative (<=0.8 AI) 4 Test Performed by: [place] [address] 5 Results suggest response to immunization or prior exposure to the virus. REFERENCE VALUE Vaccinated: Positive (>=1.1 AI) Unvaccinated: Negative (<=0.8 AI) 6 Test Performed by: [place] [address] 7 Because ethnic data is not always readily available, this report includes an eGFR for both -Americans and non- Americans. The National Kidney Disease Education Program (NKDEP) does not endorse the use of the MDRD equation for patients that are not between the ages of 18 and 70, are , have extremes of body size, muscle mass, or nutritional status, or are non- or non-. According to the National Kidney Foundation, irrespective of diagnosis, the stage of the disease is based on the level of kidney function: Stage Description GFR(mL/min/1.73 m(2)) 1 Kidney damage with normal or decreased GFR 90 2 Kidney damage with mild decrease in GFR 60-89 3 Moderate decrease in GFR 30-59 4 Severe decrease in GFR 15-29 5 Kidney failure <15 (or dialysis) 8 Results suggest response to immunization or prior exposure to the virus. REFERENCE VALUE Vaccinated: Positive (>=1.1 AI) Unvaccinated: Negative (<=0.8 AI) 9 Test Performed by: [place] [address] Passenger Interline Clerk: Jose Juan Cordoba II, M.D., Ph.D. 10 Results suggest response to immunization or prior exposure to the virus. REFERENCE VALUE Vaccinated: Positive (>=1.1 AI) Unvaccinated: Negative (<=0.8 AI) 11 Test Performed by: [place] [address] Passenger Interline Clerk: Jose Juan Cordoba II, M.D., Ph.D. 12 Because ethnic data is not always readily available, this report includes an eGFR for both -Americans and non- Americans. The National Kidney Disease Education Program (NKDEP) does not endorse the use of the MDRD equation for patients that are not between the ages of 18 and 70, are , have extremes of body size, muscle mass, or nutritional status, or are non- or non-. According to the National Kidney Foundation, irrespective of diagnosis, the stage of the disease is based on the level of kidney function: Stage Description GFR(mL/min/1.73 m(2)) 1 Kidney damage with normal or decreased GFR 90 2 Kidney damage with mild decrease in GFR 60-89 3 Moderate decrease in GFR 30-59 4 Severe decrease in GFR 15-29 5 Kidney failure <15 (or dialysis) 13 Desirable <150 Borderline high 150-199 High 200-499 Very High >500 14 Desirable <200 Borderline high 200-239 High >239 15 Low <40 Desirable: 40-60 High: >60 16 Desirable: <100 mg/dL Near Optimal: 100-129 mg/dL Borderline High: 130-159 mg/dL High: 160-189 mg/dL Very High: >189 mg/dL 17 Test Performed by: [place] [address] Passenger Interline Clerk: Noah Mijares III, M.D. 18 The performance of this assay has not been established for use in neonates, infants or on cord blood. Test Performed by: [place] [address] Passenger Interline Clerk: Noah Mijares III, M.D. 19 Serologic response to B. burgdorferi infection is not detected, but cannot rule out early infection during which low or undetectable antibody levels to B. burgdorferi may be present. If clinically indicated, a new serum specimen should be submitted in 7-14 days. Test Performed by: [place] [address] Passenger Interline Clerk: Noah Mijares III, M.D. 20 Test Performed by: [place] [address] Passenger Interline Clerk: Noah Mijares III, M.D. 21 Warning: A positive result is not useful for establishing a diagnosis of syphilis. In most situations, such a result may reflect a prior treated infection; a negative result can exclude a diagnosis of syphilis except for incubating or early primary disease. 22 Because ethnic data is not always readily available, this report includes an eGFR for both -Americans and non- Americans. The National Kidney Disease Education Program (NKDEP) does not endorse the use of the MDRD equation for patients that are not between the ages of 18 and 70, are , have extremes of body size, muscle mass, or nutritional status, or are non- or non-. According to the National Kidney Foundation, irrespective of diagnosis, the stage of the disease is based on the level of kidney function: Stage Description GFR(mL/min/1.73 m(2)) 1 Kidney damage with normal or decreased GFR 90 2 Kidney damage with mild decrease in GFR 60-89 3 Moderate decrease in GFR 30-59 4 Severe decrease in GFR 15-29 5 Kidney failure <15 (or dialysis) 23 Comment: Tube 2 24 Comment: Tube 2 25 RUN DATE: 07/21/13 [facility] LAB LIVE PAGE 1 RUN TIME: [address] [place] [id number] Specimen Inquiry Name: KINGSLEY ROMERO : [address]: Sandy Carrillo MD Acct: [id number] Unit: [id number] AGE: 47 Location: ED Re07/20/13 SEX: F Status: REG ER SPEC: [id number] RONNA: 07/21/[address]: Sandy Carrillo MD REQ: [id number] RECD: 07/21/13 STATUS: RES DEEPHR DR: Jonathon Santiago MD _ SOURCE: CSF SPDESC: ORDERED: CSF Cult/GS COMMENTS: Comment: Tube 3 Procedure Result Verified Site CSF Gram Stain Final 07/21/13- 0722 ML 4+ Nucleated Cells No Polys Observed No Organisms Seen Preparation By Cytospin Smear CSF Culture PENDING END OF REPORT * ML=Testing performed at Main Lab DEPARTMENT OF PATHOLOGY, [address] [place] [address] Misael Whitlock M.D. Director [facility] Permit #[id number] 26 Slide and differential reviewed. No bacteria, blasts or other malignant cells seen. Acute inflammation and lymphocytosis. Recommend correlation with microbiology studies. Reviewed by Blaire Grant MD 27 If is still suspected, please repeat test after 48 to 72 hours. . This test detects intact HCG only and is indicated for the early detection of . 28 Anion gap measurement may be of limited value in the presence of any alkalosis, especially in a combined acid base disorder. . 29 A metabolite of Naproxen, O-desmethylnaproxen, has been shown to interfere with the Jendrassik-Darwin method for measuring total bilirubin. Samples from patients who have taken Naproxen have shown spurious elevation in total bilirubin levels. 30 Because ethnic data is not always readily available, this report includes an eGFR for both -Americans and non- Americans. The National Kidney Disease Education Program (NKDEP) does not endorse the use of the MDRD equation for patients that are not between the ages of 18 and 70, are , have extremes of body size, muscle mass, or nutritional status, or are non- or non-. According to the National Kidney Foundation, irrespective of diagnosis, the stage of the disease is based on the level of kidney function: Stage Description GFR(mL/min/1.73 m(2)) 1 Kidney damage with normal or decreased GFR 90 2 Kidney damage with mild decrease in GFR 60-89 3 Moderate decrease in GFR 30-59 4 Severe decrease in GFR 15-29 5 Kidney failure <15 (or dialysis) 31 PLEASE NOTE NEW REFERENCE RANGE. 32 [id number] REFRACTOMETER RESULT 1.047 CONFIRMED BY RCOL at 2312 on 04/28/12. 34 CHOLESTEROL INTERPRETATION: Desirable: Less than 200 MG/DL Borderline-High Risk: 200-239 MG/DL High-Risk: 240 MG/DL and over 35 HDL INTERPRETATION: Undesirable: High Risk: Less than 40 MG/DL Desirable: Low Risk: Greater than 60 MG/DL 36 LDL INTERPRETATION: Low Risk Optimal Level: LDL Less than 100 MG/DL Near or Above Optimal: LDL 100-129 MG/DL Borderline High Risk: LDL 130-159 MG/DL High Risk: LDL 160-189 MG/DL Very High Risk: LDL Greater than 189 MG/DL 37 PLEASE NOTE NEW REFERENCE RANGES. 38 If is still suspected, please repeat test after 48 to 72 hours. . 39 SURGERY SCHEDULED FOR 08/12/09 0745 40 PREADMISSION TESTING SAMPLES FOR BLOOD BANK WILL BE HELD FOR 14 DAYS FROM THE DATE OF COLLECTION *IF* THE FOLLOWING CRITERIA ARE MET: 1) THE PATIENT HAS *NOT* BEEN IN THE LAST 3 MONTHS. 2) THE PATIENT HAS *NOT* BEEN TRANSFUSED IN THE LAST 3 MONTHS. PREADMISSION TESTING SAMPLES WILL *NOT* BE HELD FOR 14 DAYS FROM PATIENTS WHO IN THE LAST 3 MONTHS: 1) HAVE BEEN 2) HAVE BEEN TRANSFUSED THESE PATIENTS *MUST* BE COLLECTED WITHIN 3 DAYS OF THE SURGERY DATE. 41 Anion gap measurement may be of limited value in the presence of any alkalosis, especially in a combined acid base disorder. . 42 Please note change in reference range effective 08 . Procedures Date CPT Code Description Status 02/22/2018 08430 Arthroscopy,Knee,Meniscectomy Medial Or Lateral Completed 02/22/2018 89630 Arthroscopy,Knee,Meniscectomy Medial Or Lateral Completed 02/20/2018 55878 EKG Tracing & Interpretation Completed 11/20/201728767 Inject/Drain Joint/Bursa Major W/O US Completed 03/01/2017 36942 ECHO Transthoracic, Real-Time 2D With Doppler And Color Completed Flow 02/13/2017 28734 EKG Tracing & Interpretation Completed 10/12/201672935 Inject/Drain Joint/Bursa Major W/O US Completed 03/07/2016 Mammogram Completed 01/28/2016 07409 EKG Tracing & Interpretation Completed 07/05/2011 30713 EKG Tracing & Interpretation Completed 06/22/2010 Mammogram Completed 11/09/2009 34088 Inhalation [place] For Acute Airway Obstruction Completed W/Nebulizer/Inhaler Encounters Type Date Location Provider CPT E/M Dx Office Visit 02/20/2018 3:40p [facility] [place] [address] Z01.818 Karyn M17.12 R60.0 J45.20 I10 Office Visit 02/11/2018 2:15p [facility] Esau Cohen 8[address]13 S83.242D Of Gustavo Wade MD Office Visit 12/06/2017 2:00p [facility] Esau Cohen 29267 M25.562 Of Gustavo Wade MD M17.12 Office Visit 11/28/2017 2:00p [facility] [place] [address] F32.9 [place] Z13.220 Z13.1 Office Visit 11/20/2017 9:00a [facility] Esau Wade 25987 M25.562 Of Gustavo BENITES M17.12 Office Visit 06/25/2017 1:40p [facility] [place] [address] Z00.00 [place] Z23 Office Visit 02/13/2017 10:40a [facility] [place] [address] R06.02 Office Visit 10/12/2016 8:30a [facility] Esau Wade 36681 M25.561 Of Gustavo BENITES S83.91xA Office Visit 04/27/2016 9:40a [facility] Alirio Forbes [address]152 J09.x9 Medicine - [address] M.D. Office Visit 01/28/2016 10:00a [facility] [place] [address] Z00.00 Medicine - [address] G43.009 T40.3x5A F32.9 Z12.31 Z13.220 Z13.1 R94.31 Office Visit 08/07/2013 9:00a [facility] Bettye Carranza, N.P. 28647 047.9 - [place] v04.81 Office Visit 07/31/2013 8:30a [facility] Bettye Carranza, 33969 047.9 - [place] N.P. Office Visit 07/23/2013 11:06a [facility] Arthur Britton M.D. 97851 346.10 Assoc, Hospitalists 047.9 784.0 401.9 Office Visit 07/22/2013 11:06a [facility]oc, Arthur Britton M.D. 23765 346.10 Hospitalists 047.9 784.0 401.9 Office Visit 07/22/2013 [facility] [address] 047.9 Infectious Diseases Hosea Ibrahim Office Visit 07/21/2013 11:05a [facility] Mckayla Andrea, 66769 346.10 Assoc, Hospitalists D.OOpal 047.9 784.0 401.9 Office Visit 06/27/2013 8:30a [facility] Bettye Carranza, N.P. 29233 V70.0 - [place] 493.00 388.31 327.21 311 562.10 V76.19 Office Visit 05/08/2012 4:20p [facility] Jonathon Santiago, 32297 562.11 - Karyn Jc,[facility] Office Visit 10/19/2011 1:00p [facility] Bettye Carranza, N.P. 31992 V70.0 - [place] 493.00 388.31 327.21 311 Office Visit 07/05/2011 11:50a DO Not Use Health Data Administrator AT Jonathon Santiago, 81216 426.82 Jonathan Jc,[facility] V04.81 Office Visit 10/20/2010 9:00a DO Not Use Health Data Administrator AT Jonathon Santiago, 04958 V70.0 Jonathan Jc,FACP 493.00 388.31 327.21 724.79 706.1 V03.82 278.01 V04.81 Office Visit 11/09/2009 9:30a DO Not Use Health Data Administrator [place] [address] 466.0 [facility] Office Visit 10/28/2009 10:00a DO Not Use Health Data Administrator [place] [address] 530.81 [facility] 454.8 780.79 389.8 786.07 V04.81 Office Visit 05/28/2009 11:30a [facility] [address] 535.40 [facility] 530.81 706.0 Office Visit 03/20/2008 10:00a DO Not Use Health Data Administrator AT [facility], 31791 535.40 [facility] 346.10 Office Visit 12/25/2007 2:00p DO Not Use [facility] [address] 682.2 [facility] Office Visit 08/28/2007 8:40a DO Not Use Health Data Administrator AT [facility], 40890 722.10 [facility] 782.3 Office Visit 08/14/2007 11:10a DO Not Use Health Data Administrator AT [facility], 34589 782.3 [facility] 327.21 Plan of Care Future Appointment(s):11/28/2018 9:20 am - Gideon Schwarz NP at [facility]05/28/2018 - Gideon Schwarz, NPR60.0 Localized edemaNew Medication:Furosemide 20 mgComments:You can take the Lasix once daily as needed for the edema. If you find that you are using this dailywe would want to check your potassium in about a month.I10 Essential (primary) hypertensionComments: Check your blood pressure once weekly as the addition of the lasix may lower it.Follow up:6 months.Z11.3 Encntr screen for infections w sexl mode of transmiss
--- OUTSIDE RECORDS SUMMARY | 2018-06-24 18:29 | XMS REPORT ---
:1965 External Reference #:[id number] Author Organization [facility] Address [address] [place] [address] [place] [address] Phone [phone] Care Team Providers Name Role Phone Jonathon Santiago MD Primary Care Physician Unavailable Payers Type Date Identification Numbers Payment Provider Subscriber Commercial Expires: Policy Number: BS Of [facility] Kingsley Groves 2007 [id number] Group Number: [id number] [address] [address] PayID: [id number] DallasSARIAH bartlett [id number] Medigap Part B Expires: 2008 Policy Number: Medicaid Kingsley Groves [id number] PayID: [id number] [address] [place] [address] Commercial Effective: Policy Number: [employer] Kingsley Christiansoner 2008 [id number] Medicaid PayID: [id number] [address] [address] [place] [address] Problems Date Description Provider Status Onset: 08/28/2007 [...] Onset: 02/20/2018 Mild intermittent asthma Gideon ARTURO Schwazr Active Family History Date Family Member(s) Problem(s) [...] I45.81 Gideon 2006 24HR capsule by Karishma, PAVING INSPECTOR mouth every evening I10 Methadone HCL Active [...] 20mg 90caps 1 PO qd 535.40 Jonathon Santiago, 04/30/2008 [facility] Valtrex 12/27/2007 Hx Tablets 1gm 21tabs [...] Jonathon - Q hs Chucho Santiago, 12/25/2007 [facility] MS Contin 08/14/2007 Hx Tablets 30mg 90tabs po q8h 782.3 Jonathon - ER 12HR Chucho Santiago, 12/25/2007 [facility] Lasix 08/14/2007 Hx Tablets 40mg 30tabs qam prn for 782.3 Jonathon - rajni Santiago, 05/28/2009 [facility] [place] 08/14/2007 Hx Tablets 10-32 12tabs 1 qid [...] Injection Esau F 40MG 018 MD Mauro Depomedrol Administered Injection Esau F 40MG 018 MD Mauro PPD Administered Injection Bettye 017 - Dillon, N.P. 017 Depomedrol Administered Injection Esau F 40MG 016 MD Mauro Immunizations CPT Code Status Date Vaccine Lot # [id number] Given 06/25/2017 Hepatitis B Vaccine Adult Dosage [id number] 14401 Given 06/25/2017 Influenza Virus Vaccine, Quadrivalent, Split, [id number] Preservative Free 72484 Given 12/15/2014 Hepatitis B Vaccine Adult Dosage [id number] 82950 Given 11/17/2014 Hepatitis B Vaccine Adult Dosage [id number] 90254 Given 11/17/2014 Tdap - Tetanus/Diptheria/Acellular Pertussis [id number] 94235 Given 08/07/2013 Flu Vaccine Split Virus Preservative Free For [id number] Indiv 3Yr Older 33288 Given 07/05/2011 Influenza Virus 3Yrs & Over [id number] 43909 Given 10/20/2010 Pneumonia Vaccine [id number] 83412 Given 10/20/2010 Influenza Virus 3Yrs & Over [id number] 17169 Given 11/03/2009 Influenza Virus 3Yrs & Over 89527 Given 10/28/2009 Influenza Virus Vaccine, Pandemic Formulation 49589 Given 10/28/2009 Administration Swine Flu Shot [id number] Refused 06/27/2017 Hepatitis B Vaccine Adult Dosage [id number] Refused 06/27/2017 Tdap - Tetanus/Diptheria/Acellular Pertussis [id number] Refused 06/27/2017 Influenza Virus 3Yrs & Over [...] Test Date Test Result H/L Range Note Urine Culture And 02/20/2018 Urine Culture SEE RESULT 1 Sensitivities BELOW Laboratory test finding 02/20/2018 TSH (Thyroid Stim 0.80 mcIU/mL 0.34- 5.60 Horm) Urinalysis Profile 02/20/2018 Urine Color Yellow Urine Appearance Cloudy Urine Specific Medon 1.024 1.010-1.030 Urine pH 6.0 5-9 Urine Urobilinogen Negative Negative Urine Ketones Negative Negative Urine Protein Negative Negative Urine Leukocytes 1+ Negative Urine Blood Negative Negative Urine Nitrite Negative Negative Urine Bilirubin Negative Negative Urine Glucose Negative Negative Urine White Blood Cell Trace(0-5/hpf) Absent Urine Red Blood Cell Trace(0-2/hpf) Absent Urine Bacteria Absent Absent Urine Squamous Epithelial Cell Present Absent Basic Metabolic Panel 02/20/2018 Sodium 143 mmol/L 139-145 Potassium 4.1 mmol/L 3.5-5.0 Chloride 108 mmol/L 101-111 Co2 Carbon Dioxide 29 mmol/L 22-32 Anion Gap 6 mmol/L 2-11 Glucose 87 mg/dL 70-100 Blood Urea Nitrogen 14 mg/dL 6-24 Creatinine 0.77 mg/dL 0.51-0.95 BUN/Creatinine Ratio 18.2 8-20 Calcium 9.0 mg/dL 8.6-10.3 Egfr Non- 78.7 >60 Egfr 101.2 >60 2 CBC Auto Diff 02/20/2018 White Blood Count [...] 0-2 Nucleated Red Blood Cells % 0.1 Rubeola Measles Igg AB 06/27/2017 Rubeola (Measles) IgG Antibody Positive 3 Rubeola IgG Antibody Index >8.0 4 Laboratory [...] finding 04/11/2016 Rubella Screen Immune IU/mL Immune Lipid Profile (Trig/Chol/HDL) 01/28/2016 Triglycerides 55 mg/dL 12 Cholesterol 144 mg/dL 13 HDL Cholesterol 61.0 mg/dL 14 LDL Cholesterol 72 mg/dL 15 Basic Metabolic Panel 01/28/2016 Sodium 139 mmol/L 133-145 Potassium 4.0 mmol/L 3.5-5.0 Chloride 105 mmol/L 101-111 Co2 Carbon Dioxide 29 mmol/L 22-32 Anion Gap 5 mmol/L 2-11 Glucose 93 mg/dL 70-100 Blood Urea Nitrogen 11 mg/dL 6-24 Creatinine 0.66 mg/dL 0.51-0.95 BUN/Creatinine Ratio 16.7 8-20 Calcium 8.9 mg/dL 8.6-10.3 Egfr Non- 94.8 >60 Egfr 121.9 >60 16 Herpes Simplex Type 1&2 07/31/2013 Herpes [...] Non- 76.9 >60 Egfr 98.9 >60 22 Body Fluid Cell Count 07/21/2013 Body Fluid Source Cerebral Spinal Body Fluid Appearance Clear Body Fluid Color Colorless CSF Tube # 1 Body Fluid Volume 1 mL Body Fluid WBC 31 Body Fluid RBC 79 Body Fluid Polys 32 Body Fluid Lymph 52 Body Fluid Dickens 16 Body Fluid Eosinophil 1 Body Fluid Total Cells Counted 100 Fluid Reviewed By MD (SEE NOTE) 23 CSF Culture & Sensitivity 07/21/2013 CSF Culture Gram (SEE NOTE) 24 Stain Laboratory test finding 07/21/2013 CSF Glucose 49 mg/dL Low 50-75 25 CSF Total Protein 60.0 mg/dL High 15-45 26 Comp Metabolic Panel 04/28/2012 Sodium 140 mmol/L 135-145 Potassium 4.0 mmol/L 3.5-5.0 Chloride 105 mmol/L 101-111 Co2 (Carbon Dioxide) 32.0 mmol/L 22-32 Anion Gap 3.0 mmol/L 2-11 27 Glucose 83 mg/dL 70-100 BUN 7 mg/dL 6-24 Creatinine 0.6 mg/dL 0.50-1.40 One Over Creatinine 1.66 BUN/Creatinine Ratio 11.7 8-20 Calcium 9.0 mg/dL 8.1-9.9 Total Protein 6.7 GM/DL 6.2-8.1 Albumin 3.7 GM/DL 3.6-5.4 Globulin 3.0 GM/DL 2-4 Albumin/Globulin Ratio 1.2 1-3 Bilirubin Total 0.5 mg/dL 0.4-1.5 28 Alkaline Phosphatase 71 U/L 30-110 Alt (SGPT) 39 U/L 14-54 Ast (Sgot) 23 U/L 12-42 eGFR Non- 107.6 > 60 eGFR 138.4 > 60 29 Laboratory test finding 04/28/2012 Amylase 55 U/L 20-120 30 Lipase 21 U/L Low 22-51 CBC Auto [...] 0-0.6 Abs Basophils 0.1 0-0.2 Comments 1 31 Laboratory test finding 04/28/2012 (HCG) Serum NEGATIVE Negative 32 Urinalysis 04/28/2012 Ua Color YELLOW Yellow Appearance-Urine CLEAR Clear Specific Medon-Ur 1.047 High 1.010-1.030 33 Esterase-Urine NEGATIVE Negative Nitrite NEGATIVE Negative Vonkbwbfoblu-Fc-OAN NEGATIVE Negative Protein-Urine NEGATIVE Negative PH-Urine 7.5 5-9 Blood-Urine NEGATIVE Negative Ketones-Urine NEGATIVE Negative Bilirubin-Ur NEGATIVE Negative Glucose-Urine NEGATIVE Negative Lipid Profile (Trig/Chol/HDL) 11/21/2010 Triglyceride 67 mg/dL 40-200 Cholesterol 139 mg/dL Less Than 200 34 High Density Lipoprotein 46 mg/dL 40-60 35 Cholesterol/HDL Ratio 3.02 AVERAGE 1-4.44 Low Density Lipoprotein 80 mg/dL Less Than 100 36 CBC With Electronic Diff 11/21/2010 White Blood [...] Eosinophils 0.3 0-0.6 Abs Basophils 0.1 0-0.2 Laboratory test finding 11/21/2010 Glucose 94 mg/dL 70-100 Hemogram 11/21/2010 White Blood Count 8.3 CUMM 4.8-10.8 Red Cell Count 4.10 CUMM Low 4.2-5.4 Hemoglobin 12.9 g/dL 12.0-16.0 Hematocrit 39 % 35-47 Mean Corpuscular Volume 95 um3 79-97 Mean Corpuscular Hemoglob 32 pg High 27-31 Mean Corpuscular HGB Cone 33 g/dL 32-36 Redcell Distribution WDTH 14 % 10.5-15 Platelet Count 327 CUMM 150-450 Mean Platelet Volume 7.4 um3 7.4-10.4 Laboratory test finding 10/28/2009 TSH 2.36 MIU/ML [...] SLIGHT Ovalocytes FEW Urine Qual 08/12/2009 Specific Medon 1.015 1.010-1.030 Urine NEGATIVE Negative 38 Type [...] 0-0.6 39 Abs Basophils 0 0-0.2 39 Ua Stat 03/19/2008 Ua Color YELLOW Appearance-Urine CLEAR Specific Medon-Ur 1.012 1.010-1.030 Esterase-Urine TRACE Negative Nitrite NEGATIVE Negative Xzwqpyruknfk-Oc-FEK NEGATIVE Negative Protein-Urine NEGATIVE Negative PH-Urine 8.0 5-9 Blood-Urine NEGATIVE Negative Ketones-Urine NEGATIVE Negative Bilirubin-Ur NEGATIVE Negative Glucose-Urine NEGATIVE Negative Urinalysis W/Microscopic Stat 03/19/2008 Ua Color YELLOW Appearance-Urine CLEAR Specific Medon-Ur 1.012 1.010-1.030 Esterase-Urine TRACE Negative Nitrite NEGATIVE Negative Sezdvdjbvoqm-Ve-QXL NEGATIVE Negative Protein-Urine NEGATIVE Negative PH-Urine 8.0 5-9 Blood-Urine NEGATIVE Negative Ketones-Urine NEGATIVE Negative Bilirubin-Ur NEGATIVE Negative Glucose-Urine NEGATIVE Negative WBC-Urine 4-7 0-5 RBC-Urine 0-2 0-2 Mucus Urine SMALL Epith Cells-Ur FEW Bacteria-Urine FEW Amorphous Sed-U FEW Laboratory test finding 03/19/2008 Lipase 17 U/L [...] Eosinophils 0.1 0-0.6 Abs Basophils 0.1 0-0.2 1 SEE RESULT BELOW Name: NIKAEM LETYKINGSLEY : [address]: Gideon Schwarz NP Acct: [id number] Unit: [id number] AGE: 52 Location: [facility] Re02/20/18 SEX: F Status: REG REF SPEC: [id number] RONNA: 02/20/18-[address]: Gideon Schwarz NP REQ: [id number] RECD: 02/20/18 STATUS: COMP _ SOURCE: URINE [facility]: ORDERED: Urine Culture Procedure Result Reported Site Urine Culture Final 02/21/18- 1605 ML No growth of clinically significant organisms * ML - Main Lab . END OF REPORT DEPARTMENT OF PATHOLOGY, [address] [place] [address] Misael Whitlock M.D. Director [facility] # [id number] 2 Because ethnic data is not always readily [...] 15-29 5 Kidney failure <15 (or dialysis) 3 Results suggest response to immunization or prior exposure to the virus. REFERENCE VALUE Vaccinated: Positive (>=1.1 AI) Unvaccinated: Negative (<=0.8 AI) 4 Test Performed by: [place] [address] 5 Results suggest response to immunization or prior exposure to the virus. REFERENCE VALUE Vaccinated: Positive (>=1.1 AI) Unvaccinated: Negative (<=0.8 AI) 6 Test Performed by: [place] [address] 7 Because ethnic data is not always [...] Negative (<=0.8 AI) 9 Test Performed by: [place] [address] [employer]: Jose Juan Cordoba II, M.D., Ph.D. 10 Results suggest response to immunization or prior exposure to the virus. REFERENCE VALUE Vaccinated: Positive (>=1.1 AI) Unvaccinated: Negative (<=0.8 AI) 11 Test Performed by: [place] [address] [employer]: Jose Juan Cordoba II, M.D., Ph.D. 12 Desirable <150 Borderline high 150-199 High 200-499 Very High >500 13 Desirable <200 Borderline high 200-239 High >239 14 Low <40 Desirable: 40-60 High: >60 15 Desirable: <100 mg/dL Near Optimal: 100-129 mg/dL Borderline High: 130-159 mg/dL High: 160-189 mg/dL Very High: >189 mg/dL 16 Because ethnic data is not always readily [...] 15-29 5 Kidney failure <15 (or dialysis) 17 Test Performed by: [place] [address] [employer]: Noah Mijares III, M.D. 18 The performance of this assay has not been established for use in neonates, infants or on cord blood. Test Performed by: [place] [address] [employer]: Noah Mijares III, M.D. 19 Serologic response to B. burgdorferi infection is not detected, but cannot rule out early infection during which low or undetectable antibody levels to B. burgdorferi may be present. If clinically indicated, a new serum specimen should be submitted in 7-14 days. Test Performed by: [place] [address] [employer]: Noah Mijares III, M.D. 20 Test Performed by: [place] [address] [employer]: Noah Mijares III, M.D. 21 Warning: A [...] 5 Kidney failure <15 (or dialysis) 23 Slide and differential reviewed. No bacteria, blasts or other malignant cells seen. Acute inflammation and lymphocytosis. Recommend correlation with microbiology studies. Reviewed by Blaire Grant MD 24 RUN DATE: 07/21/13 [facility] LAB LIVE PAGE 1 RUN TIME: [address] [place] [address] Specimen Inquiry Name: SHARIF RODRIGUEZKINGSLEY : [address]: Sandy Carrillo MD Acct: [id number] Unit: [id number] AGE: 47 Location: ED Re07/20/13 SEX: F Status: REG ER SPEC: [id number] RONNA: 07/21/[address]: Sandy Carrillo MD REQ: [id number] RECD: 07/21/13 STATUS: RES DEEP DR: Jonathon Santiago MD _ SOURCE: CSF SPDESC: ORDERED: CSF Cult/GS COMMENTS: Comment: Tube 3 Procedure Result Verified Site CSF Gram Stain Final 07/21/13- 0722 ML 4+ Nucleated Cells No Polys Observed No Organisms Seen Preparation By Cytospin Smear CSF Culture PENDING END OF REPORT * ML=Testing performed at Main Lab DEPARTMENT OF PATHOLOGY, [address] [place] [address] Misael Whitlock M.D. Director [facility] Permit #[id number] 25 Comment: Tube 2 26 Comment: Tube 2 27 Anion gap measurement may be of limited value in the presence of any alkalosis, especially in a combined acid base disorder. . 28 A metabolite of Naproxen, O-desmethylnaproxen, has been shown to interfere with the Jendrassik-Doon method for measuring total bilirubin. Samples from patients who have taken Naproxen have shown spurious elevation in total bilirubin levels. 29 Because ethnic data is not always readily [...] 15-29 5 Kidney failure <15 (or dialysis) 30 PLEASE NOTE NEW REFERENCE RANGE. 31 [id number] 32 If is still suspected, please repeat test after 48 to 72 hours. . This test detects intact HCG only and is indicated for the early detection of . 33 REFRACTOMETER RESULT 1.047 CONFIRMED BY RCOL [...] . Procedures Date CPT Code Description Status 05/28/2018 55479 Inject/Drain Joint/Bursa Major W/O US Completed 02/22/2018 53836 Arthroscopy,Knee,Meniscectomy Medial Or Lateral Completed 02/22/2018 76148 Arthroscopy,Knee,Meniscectomy Medial Or Lateral Completed 02/20/2018 04401 EKG Tracing & Interpretation Completed 11/20/201704718 Inject/Drain Joint/Bursa Major W/O US Completed 03/01/2017 61855 ECHO Transthoracic, Real-Time 2D With Doppler And Color Completed Flow 02/13/2017 40094 EKG Tracing & Interpretation Completed 10/12/201679964 Inject/Drain Joint/Bursa Major W/O US Completed 03/07/2016 Mammogram Completed 01/28/2016 23879 EKG Tracing & Interpretation Completed 07/05/2011 43936 EKG Tracing & Interpretation Completed 06/22/2010 Mammogram Completed 11/09/2009 71012 Inhalation TX For Acute Airway Obstruction Completed W/Nebulizer/Inhaler Encounters Type Date Location Provider CPT E/M Dx Office Visit 05/28/2018 [facility] [address] M17.12 11:15a Gustavo BENITES M23.332 Office Visit 02/20/2018 3:40p [facility] [place] [address] Z01.818 Karyn M17.12 R60.0 J45.20 I10 Office Visit 02/11/2018 2:15p [facility] Cohen [address]01 S83.242D Of Gustavo Wade MD Office Visit 12/06/2017 2:00p [facility] Esau Cohen 36718 M25.562 Of Gustavo Wade MD M17.12 Office Visit 11/28/2017 2:00p [facility] [place] [address] F32.9 North Z13.220 Z13.1 Office Visit 11/20/2017 9:00a [facility] Wade 74382 M25.562 Of Gustavo BENITES M17.12 Office Visit 06/25/2017 1:40p [facility] [place] [address] Z00.00 North Z23 Office Visit 02/13/2017 10:40a [facility] [place] [address] R06.02 Office Visit 10/12/2016 8:30a [facility] Wade, 35568 M25.561 Of Gustavo BENITES S83.91xA Office Visit 04/27/2016 9:40a [facility] Alirio Forbes, [address] J09.x9 Medicine - [address] M.D. Office Visit 01/28/2016 10:00a [facility] Jama Lofton, PAVING INSPECTOR 50081 Z00.00 Medicine - [address] G43.009 T40.3x5A F32.9 Z12.31 Z13.220 Z13.1 R94.31 Office Visit 08/07/2013 9:00a [facility] Bettye Carranza, N.P. 78914 047.9 - North v04.81 Office Visit 07/31/2013 8:30a [facility] Bettye Carranza, [address]458 047.9 - North N.P. Office Visit 07/23/2013 11:06a [facility] Arthur Britton M.D. 52910 346.10 Assoc, Hospitalists 047.9 784.0 401.9 Office Visit 07/22/2013 11[facility]06[facility] Britton M.D. 06859 346.10 Hospitalists 047.9 784.0 401.9 Office Visit 07/22/2013 1:55p [facility] [address] 047.9 Infectious Diseases Hosea Ibrahim Office Visit 07/21/2013 11:05a [facility] Mckayla Andrea 29986 346.10 Assoc, Hospitalists D.OOpal 047.9 784.0 401.9 Office Visit 06/27/2013 8:30a [facility] Bettye Carranza, N.P. 52495 V70.0 - Karyn 493.00 388.31 327.21 311 562.10 V76.19 Office Visit 05/08/2012 4:20p [facility] Jonathon Santiago, 20510 562.11 - Karyn Jc,FACP Office Visit 10/19/2011 1:00p [facility] Bettye Carranza N.P. 15766 V70.0 - North 493.00 388.31 327.21 311 Office Visit 07/05/2011 11:50a DO Not Use [employer] AT [facility], 47985 426.82 [facility] MChucho,FACP V04.81 Office Visit 10/20/2010 9:00a DO Not Use [employer] AT [facility], 18418 V70.0 [facility] M.Chucho,FACP 493.00 388.31 327.21 724.79 706.1 V03.82 278.01 V04.81 Office Visit 11/09/2009 9:30a DO Not Use [employer] [place] [address] 466.0 [facility] Office Visit 10/28/2009 10:00a DO Not Use [employer] [place] [address] 530.81 [facility] 454.8 780.79 389.8 786.07 V04.81 Office Visit 05/28/2009 11:30a DO Not Use [employer] [address] 535.40 [facility] 530.81 706.0 Office Visit 03/20/2008 10:00a DO Not Use [employer] Drawer AT [facility], 75705 535.40 [facility] 346.10 Office Visit 12/25/2007 2:00p DO Not Use [employer] [place] [address] 682.2 [facility] Office Visit 08/28/2007 8:40a DO Not Use [employer] Drawer AT [facility], 27151 722.10 Penascopilar Jc,FACP 782.3 Office Visit 08/14/2007 11:10a DO Not Use [employer] Drawer AT [facility], 70520 782.3 [facility] 327.21 Plan of Care Future Appointment(s):08/28/2018 1:00 pm - [facility]11/28/2018 9:20 am - Gideon Schwarz NP at [facility]05/28/2018 - Esau Wade, MDM17.12 Unilateral primary osteoarthritis, left kneeNew Labs:Arthritis PanelC Reactive ProteinLupus Anticoagulant ABFollow up:Follow up: 3 lxbbgmU50.332 Oth meniscus derangements, other medial meniscus, left knee
[2018-06-24 18:30] VITALS: BP 153/92
--- NOTE | 2018-06-24 18:35 | UC ---
Respiratory Complaint HPI - HPI Summary HPI Summary: 52 y/o female presents to the urgent care c/o productive cough, nasal congestion and body aches for the past 3 days . Pt w/ PMHX of asthma and now she has developed some wheezing. She had low grade fever w/ chills at the beginning of symptoms. Pt has used albuterol inhaler w/o any improvement. Today is producing a yellowish phlegm and has a HOLLINGSWORTH. Pt denies SOB, chest pain, abdominal pain, rash, N/V/D. - History of Current Complaint Chief Complaint: UCRespiratory Stated Complaint: COUGH, AND FEVER Time Seen by Provider: 06/24/18 18:34 Hx Obtained From: Patient Hx Last Menstrual Period: hyster ?: No Onset/Duration: Gradual Onset, Lasting Days - 3 days, Worse Since - today Timing: Intermittent Episodes Severity Initially: Mild Severity Currently: Moderate Pain Intensity: 2 - HOLLING[place]TH Pain Scale Used: 0-10 Numeric Character: Cough: Productive, Sputum Description: - yellowish Aggravating Factors: Recumbent Position Alleviating Factors: Bronchodilator Associated Signs And Symptoms: Positive: Fever, Chills, Wheezing, URI, Nasal Congestion, Sinus Discomfort - Risk Factors Pulmonary Embolism Risk Factors: Negative Cardiac Risk Factors: Negative Pseudomonas Risk Factors: Negative Tuberculosis Risk Factors: Negative - Allergies/Home Medications Allergies/Adverse Reactions: Allergies Allergy/AdvReac Type Severity Reaction Status Date / Time No Known Allergies Allergy Verified 06/24/18 18:30 PMH/Surg Hx/FS Hx/Imm Hx Previously Healthy: Yes Cardiovascular History: Hypertension Respiratory History: Asthma Neurological History: Migraine Other Neurological History: chronic back pain - Surgical History Surgical History: Yes Surgery Procedure, Year, and Place: HYSTERECTOMY, BREAST REDUCTION, LUMBAR SPINE L5/S1 DISCECTOMY. RIGHT FOOT PLANTAR FASCITIS - Family History Known Family History: Positive: Hypertension, Diabetes Family History: denies cardio vascular issues in family lineage - Social History Occupation: Employed Full-time Lives: With Family Alcohol Use: Occasionally Alcohol Amount: QOD Substance Use Type: None Substance Use Comment - Amount & Last Used: once a week. Smoking Status (MU): Never Smoked Tobacco Have You Smoked in the Last Year: No - Immunization History Most Recent Influenza Vaccination: 2011 Most Recent Tetanus Shot: 2012 Most Recent Pneumonia Vaccination: NONE Review of Systems Constitutional: Fever, Chills Skin: Negative Eyes: Negative ENT: Nasal Discharge, Sinus Congestion Respiratory: Cough - productive, Other - wheezing Cardiovascular: Negative Gastrointestinal: Negative Genitourinary: Negative Motor: Negative Neurovascular: Negative Musculoskeletal: Negative Neurological: Headache Psychological: Negative Is Patient Immunocompromised?: No All Other Systems Reviewed And Are Negative: Yes Physical Exam - Summary Physical Exam Summary: Vital Signs Reviewed: Yes General: well developed, well nourished female sitting in the examining table w/ o any apparent distress Eyes: Positive: Conjunctiva Clear - PERRLA, EOMI, fundi grossly normal ENT: Positive: Normal ENT inspection, Hearing grossly normal, Pharynx normal, Nasal congestion - edematous and erythematous nasal mucosa, Nasal drainage - yellowish drainage, TMs normal. Negative: Tonsillar swelling, Tonsillar exudate Neck: Positive: Supple, Nontender, No Lymphadenopathy Respiratory: no orthopnea or dyspnea. Able to speak in full sentences, no retractions or accessory muscle use, no tripod position, stridor, or head bobbing. Positive breath sound bilaterally, scattered wheezing w/ rhonchi in posterior lungs , no crackles or rales. Cardiovascular: Positive: RRR, No Murmur, Pulses Normal, Brisk Capillary Refill Abdomen Description: Positive: Nontender, No Organomegaly, Soft. Negative: CVA Tenderness (R), CVA Tenderness (L) Bowel Sounds: Positive: Present Musculoskeletal Exam: Normal Musculoskeletal: Positive: Strength Intact, ROM Intact, No Edema Neurological Exam: Normal Psychological Exam: Normal Skin Exam: Normal Triage Information Reviewed: Yes Vital Signs: Initial Vital Signs Temp 98.7 F 06/24/18 18:27 Pulse 88 06/24/18 18:27 Resp 12 06/24/18 18:27 BP 153/92 06/24/18 18:27 Pulse Ox 98 06/24/18 18:27 Diagnostic Evaluation - Laboratory O2 Sat by Pulse Oximetry: 98 Respiratory Course/Dx - Course Course Of Treatment: 52 y/o female presents to the urgent care c/o productive cough, nasal congestion and body aches for the past 3 days . Pt w/ PMHX of asthma and now she has developed some wheezing. She had low grade fever w/ chills at the beginning of symptoms. Pt has used albuterol inhaler w/o any improvement. Today is producing a yellowish phlegm and has a [place]LL[place]SW[place]TH. Pt denies SOB, chest pain, abdominal pain, rash, N/V/D.Hx obtained. Pt w/ asthma exacerbation probably due to bronchitis on examination. O2 sat:98%.Chest X-ray ordered to r/ o pneumonia. Impression No acute cardiopulmonary disease observed. Pt given Prednisone PO taper dose and 1 Duoneb treatment at the clinic. Patient tolerated well treatment and lungs improved, mild wheezing only in posterior LF lung, O2 sat 100%. Patient left the clinic ambulating and feeling better. Patient prescribed Z-delfino, Prednisone PO and Duoneb treatment as directed below. The patient was recommended to increase fluid intake. Take medications as recommended Patient recommended to return to the clinic or go to the nearest ER if symptoms do not improve or worsen. Pt's BP is elevated today advised to decrease salt in diet, monitor BP and f/u with PCP for further management. Patient understood and agreed. - Differential Dx/Diagnosis Differential Diagnosis/HQI/PQRI: Asthma, Bronchitis, Influenza, Laryngitis, Lower Resp Infection, Sinusitis, Other - pneumonia Provider Diagnoses: 1- Asthma exacerbation due to bronchitis. 2-cough. 3- Uncontrolled HTN Discharge - Sign-Out/Discharge Documenting (check all that apply): Patient Departure All imaging exams completed and their final reports reviewed: No - Discharge Plan Condition: Stable Disposition: HOME Prescriptions: Albuterol/Ipratropium NEB.SEKOU* [Duoneb (Albuterol 2.5 MG/Ipratropium 0.5 MG)] 1 neb INH Q4H #1 box Azithromyxin DELFINO (NF) [Z-Delfino (Zithromax) 250 mg tabs #6] 2 tab PO .TODAY, THEN 1 DAILY #6 tab predniSONE TAB* [Deltasone 20 MG TAB*] 20 mg PO DAILY #8 tab Patient Education Materials: Asthma (ED), Acute Bronchitis (ED), Low-Sodium Diet (ED) Forms: *Work Release Referrals: Gideon Schwarz, MANAGER PERSONAL [Primary Care Provider] - 3 Days Additional Instructions: 1- Take Prednisone PO taper dose as directed starting tomorrow. First loading dose given today. Take Z-delfino as directed to alleviate symptoms 2-Use the Duoneb nebulizer treatment to alleviate SOB, and wheezing as directed . Increase fluid intake, rest and eat well. 3- If symptoms do not improve or worsen or your develop SOB with fever and severe wheezing please go immediately to the ER further evaluation and treatment. 4- F/u with your PCP in 2-3 days for further management on your Asthma 5-Your BP is elevated today. please decrease salt in your diet, monitor BP and if it continues to be elevated please f/u with your PCP for further management - Billing Disposition and Condition Condition: STABLE Disposition: Home
[2018-06-24] MEDS ORDERED: Albuterol/Ipratropium NEB.SOL* Albuterol 2.5 MG/Ipratropium 0.5 MG 3 ML INH ONE (18:46)
[2018-06-24] MEDS ORDERED: predniSONE TAB* 20 MG PO ONE (18:46)
--- NOTE | 2018-06-25 07:42 | RAD ---
INDICATION: Productive cough with fever and wheezing. COMPARISON: Comparison is made with a prior study from February 13, 2017. TECHNIQUE: Dual-energy PA and lateral views of the chest were obtained. FINDINGS: The heart is within normal limits in size. Mediastinal and hilar contours appear within normal limits. The lungs are clear. No pleural effusion is present. IMPRESSION: NO EVIDENCE FOR ACTIVE CARDIOPULMONARY DISEASE. R0
--- NOTE | 2018-06-25 08:16 | UC ---
- Progress Note Progress Note: FINAL CXR REPORT REVIEWED. NO ACTIVE DISEASE. NO CHANGE IN MANAGEMENT - HAYDEN MANUEL MD Discharge - Sign-Out/Discharge Documenting (check all that apply): Post-Discharge Follow Up All imaging exams completed and their final reports reviewed: Yes - Discharge Plan Condition: Stable Disposition: HOME Prescriptions: Albuterol/Ipratropium NEB.SEKOU* [Duoneb (Albuterol 2.5 MG/Ipratropium 0.5 MG)] 1 neb INH Q4H #1 box Azithromyxin DELFINO (NF) [Z-Delfino (Zithromax) 250 mg tabs #6] 2 tab PO .TODAY, THEN 1 DAILY #6 tab predniSONE TAB* [Deltasone 20 MG TAB*] 20 mg PO DAILY #8 tab Patient Education Materials: Asthma (ED), Acute Bronchitis (ED), Low-Sodium Diet (ED) Forms: *Work Release Referrals: Gidoen Schwarz, ADULT SERVICES LIBRARIAN [Primary Care Provider] - 3 Days Additional Instructions: 1- Take Prednisone PO taper dose as directed starting tomorrow. First loading dose given today. Take Z-delfino as directed to alleviate symptoms 2-Use the Duoneb nebulizer treatment to alleviate SOB, and wheezing as directed . Increase fluid intake, rest and eat well. 3- If symptoms do not improve or worsen or your develop SOB with fever and severe wheezing please go immediately to the ER further evaluation and treatment. 4- F/u with your PCP in 2-3 days for further management on your Asthma 5-Your BP is elevated today. please decrease salt in your diet, monitor BP and if it continues to be elevated please f/u with your PCP for further management - Billing Disposition and Condition Condition: STABLE Disposition: Home
== END 2018-06-24 20:00 | disposition home or self-care (01) ==
LOC: UCEAST 18:22
DX: J45.901 Unspecified asthma with (acute) exacerbation (principal); I10 Essential (primary) hypertension
CPT/HCPCS: 71046; 99212; A9270-GY; G0463; J7512